=== PATIENT | male | born 1945 | race Caucasian/White ===

== ENCOUNTER 2024-01-30 06:18 | Day surgery (SDC) | payer MEDICARE, OTHER, SELFPAY | END 2024-01-30 13:41 | disposition home or self-care (01) | LOC: GI 06:18 | PROVIDERS: ATTENDING PHYSICIAN Internal Medicine Gastroenterology | DX: Z12.11 Encounter for screening for malignant neoplasm of colon (principal); D12.2 Benign neoplasm of ascending colon; K50.10 Crohn's disease of large intestine without complications; K57.30 Diverticulosis of large intestine without perforation or abscess without bleeding; K64.8 Other hemorrhoids; Z98.890 Other specified postprocedural states | CPT/HCPCS: 45380; 88305 ==

== ENCOUNTER → 2024-10-23 12:53 | Outpatient (REF) | payer MEDICARE, OTHER, SELFPAY | LOC: RAD 12:53 | PROVIDERS: ATTENDING PHYSICIAN Physician Assistant Medical | DX: I70.0 Atherosclerosis of aorta (principal); R91.8 Other nonspecific abnormal finding of lung field | CPT/HCPCS: 71260; Q9967 ==